=== PATIENT | female | born 1945 | race Caucasian/White ===

== ENCOUNTER 2022-06-26 10:35 | Emergency (ER) | payer OTHER ==
[~2022-06-26] VITALS: Ht 157.5 cm; Wt 52.3 kg
[2022-06-26] MEDS ORDERED: ESCI-8 PO (10:55)
[2022-06-26] MEDS ORDERED: ATOR40TA28 PO (10:55)
[2022-06-26] MEDS ORDERED: SITA100 PO (10:57)
[2022-06-26] MEDS ORDERED: METO25 PO (10:57)
[2022-06-26] MEDS ORDERED: FAMO20 PO (10:57)
[2022-06-26] MEDS ORDERED: LISI-663 PO (10:57)
[2022-06-26] MEDS ORDERED: EMPA25TA3 PO (10:57)
[2022-06-26] MEDS ORDERED: KETOROLAC TROMETHAMINE 10 MG TABLET PO ONE (11:30)
[2022-06-26] MEDS ORDERED: METHOCARBAMOL 500 MG TABLET PO ONE (11:30)
[2022-06-26 14:18] VITALS: BP 149/95
[2022-06-26] MEDS ORDERED: GABA-1181 PO (14:19)
[2022-06-26] MEDS ORDERED: METH-659 PO (14:19)
== END 2022-06-26 14:24 | disposition home or self-care (01) ==
LOC: EMS 10:47
DX: S46.911A Strain of unspecified muscle, fascia and tendon at shoulder and upper arm level, right arm, initial encounter (principal); S10.93XA Contusion of unspecified part of neck, initial encounter; S70.01XA Contusion of right hip, initial encounter; E11.9 Type 2 diabetes mellitus without complications; E78.00 Pure hypercholesterolemia, unspecified; F10.20 Alcohol dependence, uncomplicated; I10 Essential (primary) hypertension; W19.XXXA Unspecified fall, initial encounter; Y93.89 Activity, other specified; Y92.89 Other specified places as the place of occurrence of the external cause; Y99.8 Other external cause status
CPT/HCPCS: 72125; 72128; 73502; 82962; 99284